=== PATIENT | male | born 1945 | race Caucasian/White ===

== ENCOUNTER 2019-02-16 13:54 | Emergency (ER) | payer MEDICARE, OTHER, SELFPAY ==
[2019-02-16 14:02] VITALS: BP 134/64; PULSE 78; RESP 18; TEMP 36.7; O2SAT 99
--- NOTE | 2019-02-16 14:22 | W.ED.GENAD ---
Discharge Plan Disposition Patient Disposition: HOME Condition: Good Discharge Details Chief Complaint: Cellulitis Clinical Impression: Tick bite, Risk of exposure to Lyme disease Primary Care Provider: Jerrica,Local ED Provider: mAirah Mcrae Home Meds and New Rx's Prescriptions: New doxycycline hyclate 100 mg capsule 200 mg PO ONCE Qty: 2 RF: 0 Discharge Instructions Instructions: Tick Bite (ED) Additional Instructions: Embedded piece of tape was removed today. The redness there today is consistent with slight irritation, does not appear frankly infected. Monitor area for signs of infection including spreading of the redness, warmth, drainage, increased pain, fever/chills. If these arise please seek care urgently once again. Doxycycline as prescribed for Lyme prophylaxis. Please follow-up with primary care as needed Discharge Data Discharge Date/Time-TO BE ENTERED AT DEPARTURE: 02/16/19 14:35 Medical Decision Making Patient 73-year-old male presenting today with chief complaint of embedded tick on the right lower side of his abdomen. He reports that he noticed that this morning, attempted to remove this himself but feels that the head is still embedded prompting him to seek care urgently. He has localized surrounding erythema, does not appear infected rather consistent with a typical embedded tick. Unclear as to how long the tick has been on. He does not believe that is been on for over 36 hours is unclear. Tick was a small, consistent with the deer tick. We did discuss Lyme prophylaxis. At this time, patient is requesting Lyme prophylaxis, will prescribe doxycycline. The remaining embedded portion of tick was able to be removed by myself, area was cleansed. We discussed new/worsening symptoms when to seek care urgently once again. All his questions and concerns were addressed and he is in agreement with this plan. HPI General Mode of arrival: ambulatory. Date/Time Provider Initiated Documentation: 02/16/19 13:57. Limitations to Documentation: no limitations. Information obtained by: patient and RN notes reviewed. History of Present Illness 73 year old M presents to the emergency department with the chief complaint of tick embedded right lower abdomen, Patient started experiencing this hour(s) and it has been constant. Patient notes no other symptoms.. Patient did receive the following treatments prior to arrival, none Related Data Home Medications Medication Instructions Recorded Confirmed doxycycline hyclate 200 mg PO ONCE #2 cap 02/16/19 Previous Rx's Medication Instructions Recorded doxycycline hyclate 200 mg PO ONCE #2 cap 02/16/19 Allergies Allergy/AdvReac Type Severity Reaction Status Date / Time No Known Allergies Allergy Unverified 02/16/19 14:05 General Stated Complaint: Cellulitis DALE: 5 Review of Systems Constitutional Reports as per HPI, Denies chills and Denies fever(s) Musculoskeletal Reports as per HPI Integumentary/Breasts Reports as per HPI Neurologic Reports as per HPI, Denies sensory deficit and Denies paresthesias PFS Medical History Spermatocele (Acute) Surgical History H/O hernia repair (Chronic) Social History Smoking/Tobacco Use Status: Never Alcohol Intake: current Alcohol Intake frequency: holidays/special occasions only Drug use: Never Exam Const General: cooperative, healthy appearing, comfortable, no acute distress and well developed Nutritional Appearance: average body habitus and well nourished Orientation: alert and awake Resp Effort & Inspection: normal respiratory effort, able to speak in complete sentences and no respiratory distress Cardio Rate: regular rate Rhythm: regular rhythm Skin General skin exam: erythema (localized around tick) and no fluctuance Neuro General: alert and awake Cognition: normal cognition Speech: speech normal Gait: normal gait Sensory Exam: no sensory deficits noted Psych Appearance: grossly normal and well kempt Mental Status: mental status grossly normal Speech and Movement: speech and movement normal Course Vital Signs Temperature 36.7 C 02/16/19 14:02 Pulse 78 02/16/19 14:02 Respiratory Rate 18 02/16/19 14:02 Blood Pressure 134/64 02/16/19 14:02 Pulse Oximetry 99 02/16/19 14:02 Temperature 36.7 C 02/16/19 14:02 Temperature Source Skin 02/16/19 14:02 Pulse 78 02/16/19 14:02 Respiratory Rate 18 02/16/19 14:02 Respiratory Effort Non-Labored 02/16/19 14:06 Blood Pressure 134/64 02/16/19 14:02 Blood Pressure Position Sitting 02/16/19 14:02 Pulse Oximetry 99 02/16/19 14:02 Oxygen Delivery Method Room Air 02/16/19 14:02 Oxygen Flow Rate 0 02/16/19 14:02 Pain Level 0 02/16/19 14:02
--- NOTE | 2019-02-16 14:26 | ED.GENADUL_ITS ---
Discharge Plan Disposition Patient Disposition: HOME Condition: Good Discharge Details Chief Complaint: Cellulitis Clinical Impression: Tick bite, Risk of exposure to Lyme disease Primary Care Provider: Jerrica,Local ED Provider: Amirah Mcrae Home Meds and New Rx's Prescriptions: New doxycycline hyclate 100 mg capsule 200 mg PO ONCE Qty: 2 RF: 0 Discharge Instructions Instructions: Tick Bite (ED) Additional Instructions: Embedded piece of tape was removed today. The redness there today is consistent with slight irritation, does not appear frankly infected. Monitor area for signs of infection including spreading of the redness, warmth, drainage, increased pain, fever/chills. If these arise please seek care urgently once again. Doxycycline as prescribed for Lyme prophylaxis. Please follow-up with primary care as needed Discharge Data Discharge Date/Time-TO BE ENTERED AT DEPARTURE: 02/16/19 14:35 Medical Decision Making Patient 73-year-old male presenting today with chief complaint of embedded tick on the right lower side of his abdomen. He reports that he noticed that this morning, attempted to remove this himself but feels that the head is still embedded prompting him to seek care urgently. He has localized surrounding erythema, does not appear infected rather consistent with a typical embedded tick. Unclear as to how long the tick has been on. He does not believe that is been on for over 36 hours is unclear. Tick was a small, consistent with the deer tick. We did discuss Lyme prophylaxis. At this time, patient is requesting Lyme prophylaxis, will prescribe doxycycline. The remaining embedded portion of tick was able to be removed by myself, area was cleansed. We discuss ed new/worsening symptoms when to seek care urgently once again. All his questions and concerns were addressed and he is in agreement with this plan. HPI General Mode of arrival: ambulatory . Date/Time Provider Initiated Documentation: 02/16/19 13:57 . Limitations to Documentation: no limitations . Information obtained by: patient and RN notes reviewed . History of Present Illness 73 year old M presents to the emergency department with the chief complaint of tick embedded right lower abdomen, Patient started experiencing this hour(s) and it has been constant. Patient notes no other symptoms.. Patient did receive the following treatments prior to arrival, none Related Data Home Medications Medication Instructions Recorded Confirmed doxycycline hyclate 200 mg PO ONCE #2 cap 02/16/19 Previous Rx's Medication Instructions Recorded doxycycline hyclate 200 mg PO ONCE #2 cap 02/16/19 Allergies Allergy/AdvReac Type Severity Reaction Status Date / Time No Known Allergies Allergy Unverified 02/16/19 14:05 General Stated Complaint: Cellulitis DALE: 5 Review of Systems Constitutional Reports as per HPI, Denies chills and Denies fever(s) Musculoskeletal Reports as per HPI Integumentary/Breasts Reports as per HPI Neurologic Reports as per HPI, Denies sensory deficit and Denies paresthesias [facility] Medical History Spermatocele (Acute) Surgical History H/O hernia repair (Chronic) Social History Smoking/Tobacco Use Status: Never Alcohol Intake: current Alcohol Intake frequency: holidays/special occasions only Drug use: Never Exam Const General: cooperative, healthy appearing, comfortable, no acute distress and well developed Nutritional Appearance: average body habitus and well nourished Orientation: alert and awake Resp Effort & Inspection: normal respiratory effort, able to speak in complete sentences and no respiratory distress Cardio Rate: regular rate Rhythm: regular rhythm Skin General skin exam: erythema (localized around tick) and no fluctuance Neuro General: alert and awake Cognition: normal cognition Speech: speech normal Gait: normal gait Sensory Exam: no sensory deficits noted Psych Appearance: grossly normal and well kempt Mental Status: mental status grossly normal Speech and Movement: speech and movement normal Course Vital Signs Temperature 36.7 C 02/16/19 14:02 Pulse 78 02/16/19 14:02 Respiratory Rate 18 02/16/19 14:02 Blood Pressure 134/64 02/16/19 14:02 Pulse Oximetry 99 02/16/19 14:02 Temperature 36.7 C 02/16/19 14:02 Temperature Source Skin 02/16/19 14:02 Pulse 78 02/16/19 14:02 Respiratory Rate 18 02/16/19 14:02 Respiratory Effort Non-Labored 02/16/19 14:06 Blood Pressure 134/64 02/16/19 14:02 Blood Pressure Position Sitting 02/16/19 14:02 Pulse Oximetry 99 02/16/19 14:02 Oxygen Delivery Method Room Air 02/16/19 14:02 Oxygen Flow Rate 0 02/16/19 14:02 Pain Level 0 02/16/19 14:02
== END 2019-02-16 14:35 | disposition home or self-care (01) ==
LOC: ER 14:31
PROVIDERS: Emergency Provider Physician Assistant
DX: S30.861A Insect bite (nonvenomous) of abdominal wall, initial encounter (principal); W57.XXXA Bitten or stung by nonvenomous insect and other nonvenomous arthropods, initial encounter
CPT/HCPCS: 99283

== ENCOUNTER 2019-04-30 11:20 | Emergency (ER) | payer MEDICARE, OTHER, SELFPAY ==
[2019-04-30 11:27] VITALS: BP 115/64; PULSE 64; RESP 16; TEMP 36.5; O2SAT 99
--- NOTE | 2019-04-30 12:02 | ED.GENADUL_ITS ---
Discharge Plan Disposition Patient Disposition: HOME Condition: Good Discharge Details Chief Complaint: RashLesion Clinical Impression: Ecchymosis Primary Care Provider: Jerrica,Local ED Provider: Amirah Mcrae Home Meds and New Rx's Prescriptions: New doxycycline hyclate 100 mg tablet 100 mg PO BID Qty: 42 RF: 0 Discharge Instructions Instructions: Contusion in Adults (ED) Additional Instructions: At this point, your rash is not consistent with erythema migrans rash of Lyme disease. This looks more consistent with bruising. Please continue to monitor the area. If you develop erythema in the pattern shown you while here, please begin the doxycycline. Begin the doxycycline as well if you develop fever/chills, joint pain. Please follow-up with your primary care in 2 weeks if symptoms have not improved. If you develop new or worsening symptoms please seek care urgently once again. Discharge Data Discharge Date/Time-TO BE ENTERED AT DEPARTURE: 04/30/19 12:10 Medical Decision Making Patient is a 74 year old male, accompanied by his , with c/c of lesion to his right forearm. He believes he was bit/stung by an insect 4 days ago. Reprots this was after working under a deck. Noted a 1cm circular area around the small puncture wound. Was seen by physician who was concerned for possible Lyme and advised he be evaluated. Denies feers/chills. No pain. UTD on tetanus. No arthralgia, myalgias. Rash is not consistent with erythema migrans. Appears more eccymotic. Too small for erythema migrans. Dr. Frankel also looked at area and agrees with this assessment. Advises that this is likely from trauma from working on deck. Patient has had multiple tick related illnesses historically. will prescribe Doxycycline for a watch and wait approach. Encouraged f/u with PCP. Discussed new/worsening symptoms that should prompt urgent evaluation once again. All quesitons and concerns were addressed, they are in agreement with this plan. HPI General Date/Time Provider Initiated Documentation: 04/30/19 11:31 . HPI Narrative: Patient is a 74-year-old male, not anticoagulated, with chief complaint of rash to the right anterior forearm. Reports that he first noticed this 4 to 5 days ago. Patient has a 1 cm well-circumscribed area of ecchymosis surrounding a small scab. He reports that he got this after working under his deck. Is concerned that this may be a bug bite. States that a friend who is a physician saw this and is concerned that it may be erythema migrans and advised evaluation for possible Lyme treatment. No known tick bite. Patient reports that he has had bites historically. Last tetanus was 2 years ago. Related Data Home Medications Medication Instructions Recorded Confirmed doxycycline hyclate 100 mg PO BID #42 tab 04/30/19 Previous Rx's Medication Instructions Recorded doxycycline hyclate 100 mg PO BID #42 tab 04/30/19 Allergies Allergy/AdvReac Type Severity Reaction Status Date / Time No Known Allergies Allergy Unverified 04/30/19 11:29 General Stated Complaint: RashLesion DALE: 4 Review of Systems Constitutional Reports as per HPI, Denies chills and Denies fever(s) Musculoskeletal Reports as per HPI, Denies myalgias and Denies arthralgias Integumentary/Breasts Reports as per HPI Neurologic Reports as per HPI, Denies sensory deficit and Denies paresthesias PFS Social History Smoking/Tobacco Use Status: Never Alcohol Intake: current Alcohol Intake frequency: holidays/special occasions only Drug use: Never Exam Const General: cooperative, healthy appearing, comfortable, no acute distress and well developed Nutritional Appearance: average body habitus and well nourished Orientation: alert and awake Resp Effort & Inspection: normal respiratory effort, able to speak in complete sentences and no respiratory distress Cardio Rate: regular rate Rhythm: regular rhythm Skin Rashes: rashes noted (1cm circular ecchymotic area right forearm, central yellowed area ) Neuro General: alert and awake Cognition: normal cognition Speech: speech normal Gait: normal gait Sensory Exam: no sensory deficits noted Extrem Right upper extremity: normal capillary refill and no joint enlargement; abnormal to inspection (skin changes as above, otherwise normal exam) and no edema Psych Appearance: grossly normal and well kempt Mental Status: mental status grossly normal Speech and Movement: speech and movement normal Course Vital Signs Temperature 36.5 C 04/30/19 11:27 Pulse 64 04/30/19 11:27 Respiratory Rate 16 04/30/19 11:27 Blood Pressure 115/64 04/30/19 11:27 Pulse Oximetry 99 04/30/19 11:27 Temperature 36.5 C 04/30/19 11:27 Temperature Source Skin 04/30/19 11:27 Pulse 64 04/30/19 11:27 Respiratory Rate 16 04/30/19 11:27 Respiratory Effort Non-Labored 04/30/19 11:27 Blood Pressure 115/64 04/30/19 11:27 Blood Pressure Position Sitting 04/30/19 11:27 Pulse Oximetry 99 04/30/19 11:27 Oxygen Delivery Method Room Air 04/30/19 11:27 Oxygen Flow Rate 0 04/30/19 11:27 Pain Level 0 04/30/19 11:27
== END 2019-04-30 12:10 | disposition home or self-care (01) ==
PROVIDERS: Emergency Provider Physician Assistant
DX: S50.11XA Contusion of right forearm, initial encounter (principal); X58.XXXA Exposure to other specified factors, initial encounter
CPT/HCPCS: 99283

== ENCOUNTER 2023-03-26 17:51 | Emergency (ER) | payer MEDICARE, OTHER, SELFPAY ==
[2023-03-26] VITALS (109 sets, daily range): BP systolic 86–143; BP diastolic 45–74; PULSE 93–119; RESP 10–24; TEMP 37.6–39.1; O2SAT 88–99
--- NOTE | 2023-03-26 17:45 | RT.EKG_ITS ---
APPROVED REPORT Exam: Resting ECG Reason for Exam: chest pain Patient Location: E HR:99 bpm ECG Measurements Heart Rate 99 AXIS MO 204 P 58 QRSd 92 QRS 33 QT 332 T 50 QTc 427 Conclusion Sinus tachycardia...rate> 99 Atrial premature complexes...SV complexes w/ short R-R intvls
--- NOTE | 2023-03-26 18:15 | DI.CT_ITS ---
Exam(s) CT CHEST PE ABD PELVIS W EXAM: CT CHEST PE ABD PELVIS W CLINICAL HISTORY: fever, epigastric pain. TECHNIQUE: Imaging Protocol: Axial CT angiography was performed with multi-slice acquisition and mu lti-planar and/or 3D reconstructions. CONTRAST MATERIAL: Intravenous: Omnipaque 350contrast volume:100 mL COMPARISON: No exams were available for comparison FINDINGS: CHEST: Tracheobronchial tree: Patent where visualized. Pulmonary parenchyma: Mild dependent atelectasis. No focal consolidating infiltrates. No architectu ral distortion. Pulmonary Arteries: No evidence of filling defect to suggest pulmonary emboli. Mediastinum and Corrina: No dominant adenopathy or fluid collection. The esophagus is unremarkable. Visualized thyroid gland: Unremarkable. Pleura: No effusion or pneumothorax. There are few calcified pleural plaques which can be seen with p rior asbestos exposure. Heart: The heart is not dilated. No coronary artery calcifications are seen. No pericardial effusion. Aorta: Thoracic aorta non-dilated. No evidence of dissection. Bones: Within normal limits for the patient's age. Soft tissues: Unremarkable. ABDOMEN: Liver: Normal density. No measurable mass. Portal, Superior Mesenteric, and Splenic Veins: Prominence of the venous structures in the abdomen an d pelvis which may reflect elevated portal venous pressures. Gallbladder and Biliary Tract: The gallbladder is distended. No stones are identified. There is mil d intrahepatic biliary ductal dilatation. There is mild pericholecystic fluid. Pancreas: Normal density, no abnormal calcifications or inflammatory process. Spleen: Normal. Adrenals: No masses seen. Kidneys: Normal size, contour and axis. Right nephrolithiasis. No hydronephrosis. Simple bilateral renal cysts. No follow-up is recommended. Abdominal Aorta: Abdominal portion non-dilated. Atherosclerosis. Bowel: No obstruction or bowel wall thickening. Postsurgical changes in the mid small bowel in the pe lvis. Peritoneal Cavity: Trace ascites. No free air. Lymph Nodes: Within normal limits. Bones: Within normal limits for the patient's age. Soft Tissues: Small fat containing umbilical hernia. PELVIS: Bladder: The urinary bladder is incompletely distended. There is diffuse thickening of the wall of t he urinary bladder. Reproductive Organs: Unremarkable as visualized. Lymph Nodes: Within normal limits. Bones: Within normal limits. Scoliosis in the spine. IMPRESSION: 1. No evidence pulmonary embolism, thoracic aortic dissection or aneurysm. 2. No acute pulmonary process. 3. Moderate amount of retained stool in the colon. No acute bowel pathology. 4. Distended gallbladder with mild pericholecystic fluid and intra and extrahepatic biliary ductal pr ominence. Ultrasound may be considered to exclude acute cholecystitis. No gallstones are seen. 5. Diffuse gallbladder wall thickening. This may be due to incomplete distension. Acute cystitis or chronic bladder outlet obstruction could also produces appearance. RADIATION DOSE DELIVERED: 1,117.64mGy.cm Total DLP DATA REPOSITORY: All CT scans at this facility are submitted to the National Radiology Data Registry (NRDR) Dose Index Registry (DIR) with the [employer] (A[employer]). RADIATION OPTIMIZATION: All CT scans at this facility use at least one of these dose optimization te chniques: automated exposure control; mA and/or kV adjustment per patient size (includes targeted exa ms where dose is matched to clinical indication); or iterative reconstruction.
[2023-03-26] MEDS: Normal Saline 1,000 ML 1000 ML IV ×2 (18:19→22:00)
--- NOTE | 2023-03-26 18:20 | ED.GENADUL_ITS ---
Discharge Plan Disposition Condition: Stable Discharge Details Chief Complaint: Epigastric Pain/Over45 Clinical Impression: Fever, Abdominal pain Primary Care Provider: Jerrica,Local ED Provider: Rinku Hatfield Home Meds and New Rx's Prescriptions: No Action doxycycline hyclate 100 mg tablet 100 mg PO BID Qty: 42 0RF Medical Decision Making 78 yo male who denies chronic medical problems, states last August had hernia surgery that resulted in removal of part of his colon, comes in with cc of epigastric discomfort and n/v since this afternoon. He is noted to be febrile on arrival which he was unaware of. He denies cough, headache, rashes. He localizes the discomfort to the epigastric area of his abdomen. He is caox4 speaking clearly, is having rigors during exam. He has clear lungs, moving all extremities well, no murmurs, no jvd. His abdomen is soft with minimal tenderness in the luq and ruq without guarding or rebound. Unclear etiology for his symptoms given the fevers and epigastric pain concern for possible cholecystitis vs hepatitis, will obtain fluvid, cbc, cmp, lactate, procalcitonin and ct chest/abd/pelvis to evaluate for possible infiltrates vs cholecystitis vs abscess. Will treat with IVF bolus, tylenol and zofran. labs show elevated lft's otherwise benign labs, ct pending, will be signed out to oncoming provider Differential Diagnosis Differential Diagnosis: cholecystitis, pneumonia, sepsis Lab Data Lab results reviewed: Yes I reviewed the patient's lab results. ECG Data Attestation: I personally reviewed and interpreted this ECG (s) as follows: Prior ECG tracings: not available for review Interpretation: sinus tachycardia, rate of 99, pr 204, no stemi HPI General Mode of arrival: ambulatory . Date/Time Provider Initiated Documentation: 03/26/23 17:51 . Limitations to Documentation: no limitations . Information obtained by: patient . History of Present Illness 78 year old M presents to the emergency department with the chief complaint of epigastric discomfrot, described as moderate, and it has been constant. No relieving factors improve symptom(s), No exacerbating factors reported . Patient notes nausea/vomiting; denies chest pain and shortness of breath. Patient did receive the following treatments prior to arrival, none Related Data Home Medications Medication Instructions Recorded Confirmed doxycycline hyclate 100 mg tablet 100 mg PO BID #42 tabs 04/30/19 Previous Rx's Medication Instructions Recorded doxycycline hyclate 100 mg tablet 100 mg PO BID #42 tabs 04/30/19 Allergies Allergy/AdvReac Type Severity Reaction Status Date / Time No Known Allergies Allergy Unverified 03/26/23 18:06 General Stated Complaint: Epigastric Pain/Over45 DALE: 2 Review of Systems All systems reviewed & are unremarkable except as noted in HPI and below Constitutional Constitutional: Denies chills, Denies fever(s) and Denies weakness Cardiovascular Cardiovascular: Denies chest pain and Denies dyspnea Respiratory Respiratory: Denies cough and Denies dyspnea Gastrointestinal Gastrointestinal: Reports abdominal pain, Reports nausea and Reports vomiting Musculoskeletal Musculoskeletal: Denies joint swelling Neurologic Neurologic: Denies weakness PFSH All Active Problems (Updated 03/26/23 @ 19:43 by Rinku Hatfield MD) Fever (Acute) Abdominal pain (Acute) Medical History (Updated 03/26/23 @ 19:43 by Rinku Hatfield MD) Spermatocele Surgical History H/O hernia repair Social History Smoking/Tobacco Use Status: Never Smoking risk assessment performed?: Yes Alcohol Intake: current Alcohol Intake frequency: holidays/special occasions only Drug use: Never Exam Const General: no acute distress Orientation: alert [facility] Head: normal to inspection Ears: external ears normal General nose exam: external nose normal Mouth: moist mucous membranes Eyes General: appearance normal, both eyes and all related structures Neck Neck: normal visual inspection Resp Effort & Inspection: normal respiratory effort and able to speak in complete sentences Cardio Rate: regular rate GI Palpation: soft and tender Skin General skin exam: no rashes or lesions noted Neuro General: patient alert and patient oriented x3 Extrem General: normal to inspection Psych Mental Status: mental status grossly normal Course Vital Signs Vital signs: Vital Signs Temperature 39.1 C H 03/26/23 18:00 Pulse 103 H 03/26/23 18:00 Respiratory Rate 16 03/26/23 18:00 Blood Pressure 143/69 H 03/26/23 18:00 Pulse Oximetry 96 03/26/23 18:00 Temperature 39.1 C H 03/26/23 18:00 Temperature Source Oral 03/26/23 18:00 Pulse 103 H 03/26/23 18:00 Respiratory Rate 16 03/26/23 18:00 Respiratory Effort Normal, Non-Labored 03/26/23 18:06 Blood Pressure 143/69 H 03/26/23 18:00 Blood Pressure Position Supine 03/26/23 18:00 Pulse Oximetry 96 03/26/23 18:00 Oxygen Delivery Method Room Air 03/26/23 18:00 Oxygen Flow Rate 0 03/26/23 18:00 Lab/Test Results Lab/Test Results: 03/26/23 18:08 Blood Blood Culture - Pending 03/26/23 18:08 Blood Blood Culture - Pending Sign Out Sign Out Data: Sign Out Comment: Fever and epigastric discomfort, lft's elevated, pending CT Last updated by Rinku Hatfield MD at 03/26/23 19:31
[2023-03-26 18:25] LABS: Lactate 1.7 mmol/L (0.6-1.4)
[2023-03-26 18:27] LABS: Abs Immature Grans 0.01 10^3/uL (0.0-0.06); Absolute Basophil Count 0.02 10^3/uL (0.0-0.2); Absolute Eosinophil Count 0.01 10^3/uL (0.0-0.7); Absolute Lymphocyte Count 0.38 10^3/uL (1.2-3.4); Absolute Monocyte Count 0.04 10^3/uL (0.1-0.8); Absolute Neutrophil Count 7.41 10^3/uL (1.2-6.7); Basophils % 0.3; Eosinophils % 0.1; HGB 12.4 g/dL (13.5-17.5); Immature Grans % 0.1; Lymphocytes % 4.8; MCH 31.6 pg (27.0-33.0); MCHC 32.6 % (32.0-36.0); MCV 97 fL (80-95); MPV 9.7 fL (8.0-11.0); Monocytes % 0.5; Neutrophils % 94.2; Platelet Count 183 10^3/uL (130-400); RBC 3.93 10^6/uL (4.36-5.78); RDW 14.3 % (11.8-14.1); RDW-SD 50.6 fL; WBC 7.87 10^3/uL (4.4-10.8)
[2023-03-26 18:43] LABS: PTT Activated 21.7 sec (21.5-31.9)
[2023-03-26 18:50] LABS: ALT 237 U/L (16-63); AST 349 U/L (15-37); Albumin 3.8 g/dL (3.4-5.0); Alkaline Phosphatase 205 U/L (46-116); Anion Gap 7.5 mmol/L (3-11); BUN 22 mg/dL (7-18); Bilirubin, Total 2.6 mg/dL (0.2-1.0); CO2 30.5 mmol/L (21.0-32.0); Calcium 8.9 mg/dL (8.5-10.1); Chloride 104 mmol/L (98-107); Estimated GFR 77.52 (mL/min/1.73m2); Glucose 111 mg/dL (74-106); Lipase 51 U/L (16-77); Magnesium 1.9 mg/dL (1.8-2.4); Potassium 3.8 mmol/L (3.5-5.1); Sodium 142 mmol/L (136-145); Total Protein 7.6 g/dL (6.4-8.2)
[2023-03-26] MEDS: Ondansetron 4 MG/2 ML VIAL IVP (18:51)
[2023-03-26] MEDS: ACETAMINOPHEN 1,000 MG/100 ML BTL 400 MG IVPB (18:51)
[2023-03-26 19:19] LABS: COVID-19 PCR Negative (Negative); Influenza A PCR Negative (Negative); Influenza B PCR Negative (Negative); RSV PCR Negative (Negative)
[2023-03-26 19:20] LABS: Procalcitonin 0.1 ng/mL
[2023-03-26 19:24] LABS: Source Nasopharynx
[2023-03-26 19:27] LABS: Bilirubin Small (Negative); Blood Negative (Negative); Clarity Clear (Clear); Glucose Negative (Negative); Ketones 15 mg/dL (Negative); Leukocyte Esterase Negative (Negative); Nitrite Negative (Negative); pH 7.5 (5-8)
--- NOTE | 2023-03-26 20:40 | DI.VRAD_ITS ---
PROCEDURE INFORMATION: Exam: CTA Chest With Contrast Exam date and time: 03/26/2023 7:50 PM Age: 78 years old Clinical indication: Abdominal pain; Other: Unspecified; Patient HX: Fever, epigastric pain TECHNIQUE: Imaging protocol: Computed tomographic angiography of the chest with contrast. Exam focused on the arteries. 3D rendering (Not supervised by radiologist): MIP and/or 3D reconstructed images were created by the technologist. COMPARISON: No relevant prior studies available. FINDINGS: Pulmonary arteries: Enlarged pulmonary trunk and main pulmonary arteries suggesting pulmonary hypertension. No pulmonary embolism identified. Aorta: No thoracic aortic aneurysm or dissection. Thyroid: Thyroid gland partially excluded from view but grossly unremarkable through its visualized portion. Lungs: Lung dawn somewhat obscured by artifact from breathing motion. Mild dependent atelectasis. No pulmonary consolidation. Pleural spaces: Few scattered small calcified pleural plaques. Prior asbestos exposure? No pleural effusion or pneumothorax. Heart: Normal sized heart. Lymph nodes: No pathologically enlarged mediastinal or hilar lymph nodes. Bones/joints: No acute fracture seen among the bones of the chest. Soft tissues: No gross soft tissue mass or fluid collection seen in the chest wall. No gross soft tissue mass or fluid collection seen in the chest wall. IMPRESSION: Enlarged pulmonary trunk and main pulmonary arteries suggesting pulmonary hypertension. No pulmonary embolism identified. PROCEDURE INFORMATION: Exam: CT Abdomen And Pelvis With Contrast Exam date and time: 03/26/2023 7:50 PM Age: 78 years old Clinical indication: Abdominal pain; Other: Unspecified; Patient HX: Fever, epigastric pain TECHNIQUE: Imaging protocol: Computed tomography of the abdomen and pelvis with contrast. COMPARISON: No relevant prior studies available. FINDINGS: Liver: Normal appearing liver. Gallbladder and bile ducts: Prominent gallbladder distension measuring 5.2 cm x 5.4 cm by approximately 10.0 cm. Gallbladder wall poorly demonstrated but not grossly thickened. Trace pericholecystic fluid. No frankly calcified gallstones. Mild intrahepatic and extrahepatic biliary prominence. No frankly calcified distal common duct stones. Pancreas: Pancreas partially obscured by close apposition of adjacent structures. Mild prominence of the pancreatic duct measuring 5 mm through the mid body. Spleen: Normal-appearing spleen. No splenomegaly. Adrenal glands: Normal appearing adrenal glands. Kidneys and ureters: Small bilateral renal cysts. Otherwise normal-appearing kidneys. No hydronephrosis. Ureters partially obscured. No obstructing ureteral stones. Stomach and bowel: No oral contrast. Stomach partially decompressed. No small bowel dilatation to suggest obstruction. Enteroenteric anastomosis in the anterior pelvis suggesting a prior small bowel resection. Fecalized contents through the distal small bowel suggesting delayed transit through the ileum. Moderate retained fecal material in the cecum, ascending colon, and proximal transverse colon. Downstream colon well evacuated. No evidence of diverticulitis or colitis. Appendix: Normal appendix, best demonstrated by the coronal series. Intraperitoneal space: Probably at least trace intraperitoneal fluid. No free air. Vasculature: Normal caliber abdominal aorta. Enlarged portal vein, splenic vein, and superior mesenteric vein. Diffuse engorgement of the mesenteric venous structures. Engorged extraperitoneal venous structures throughout the deep pelvis. Extensive small subcutaneous varices in the anterior abdominal wall. Elevated portal venous pressure? Clinical correlation recommended. Lymph nodes: No pathologically enlarged mesenteric, retroperitoneal, or pelvic sidewall lymph nodes. Urinary bladder: Urinary bladder partially decompressed but circumferentially thick-walled. Reproductive: Normal-appearing prostate gland and seminal vesicles. Bones/joints: No acute fracture seen among the bones of the abdomen or pelvis. Soft tissues: Mild S-shaped curvature through the thoracolumbar region. Spinal degenerative change with discogenic degeneration, anterior osteophytes, posterior osteophytic ridging, vacuum disc deformities, and facet arthrosis at several levels. Small fat containing ventral hernia at the umbilicus. IMPRESSION: 1. No acute bowel pathology demonstrated. Moderate retained fecal material in the cecum, ascending colon, and proximal transverse colon but good evacuation of the downstream colon. 2. Prominently distended gallbladder. Gallbladder wall poorly demonstrated but not grossly thickened. Mild pericholecystic fluid. Intrahepatic and extrahepatic biliary prominence with prominence of the pancreatic duct. Although nonspecific, clinical correlation is recommended to exclude acute cholecystitis. 3. Enlarged portal, splenic, and superior mesenteric veins with diffuse engorgement of the mesenteric veins and engorgement of extraperitoneal veins throughout the deep pelvis. Although nonspecific, clinical correlation is recommended to exclude elevated portal venous pressure. 4. Circumferential bladder wall thickening, nonspecific. Artifact of incomplete distention, acute cystitis, or chronic outflow obstruction could produce this appearance. Dictated and Authenticated by: Remi Zuleta MD. Ordering:CARMEN Dobbs MD
--- NOTE | 2023-03-26 21:30 | RT.EKG_ITS ---
APPROVED REPORT Exam: Resting ECG Reason for Exam: tachycardia Patient Location: E HR:104 bpm ECG Measurements Heart Rate 104 AXIS MO 234 P 75 QRSd 87 QRS 47 QT 321 T 14 QTc 412 Conclusion Sinus rhythm...normal P axis, V-rate 60- 99 Atrial premature complexes...SV complexes w/ short R-R intvls Prolonged MO interval...MO >215, V-rate 91-120 sinus rhythm, PAC, normal axis, non ischemic
[2023-03-26] MEDS: PIPERACILLIN/TAZO 4.5 GM in Normal Saline 100 ML IVPB (22:01)
--- NOTE | 2023-03-26 22:13 | NUR.NOTE ---
Nursing Note: Report to Margarette CAMPBELL
--- NOTE | 2023-03-26 22:26 | ED.PROG_ITS ---
Date of service: 03/26/23 Time of Service: 22:26 Medical Decision Making Obstructive biliary pattern concerning for choledocholithiasis, in the setting of fever elevated lactate rigors on arrival consider early cholangitis, empiric Zosyn has been ordered. Fluid bolus has been ordered given relative hypotension and tachycardia I have touch base with general surgery here at [facility] as well as GI team at [facility] as patient will likely benefit from ERCP. Awaiting hear back from [facility] regarding bed availability. Patient endorses feeling better resolved pain and nausea. Patient does have mild scleral icterus March 27, 00: 00 given concern for cholangitis, history physical and change in vital signs, [facility] hospitalist and GI team has accepted patient, he will go to ED for initial evaluation given relative hypotension. Accepting physician Dr. Barba. Patient amenable to transfer. We will continue with fluids and antibiotics. Sign Out Sign Out Data: Sign Out Comment: Fever and epigastric discomfort, lft's elevated, pending CT Last updated by Rinku Hatfield MD at 03/26/23 19:31 Discharge Plan Disposition Patient Disposition: Transfer-Acute Inpatient Care Specific Acute Inpt Facility: [facility] Condition: Stable Discharge Details Chief Complaint: Epigastric Pain/Over45 Clinical Impression: Fever, Abdominal pain, Acute cholangitis Primary Care Provider: Jerrica,Local ED Provider: Jf Bruce Home Meds and New Rx's Prescriptions: No Action doxycycline hyclate 100 mg tablet 100 mg PO BID Qty: 42 0RF
[2023-03-27] VITALS (15 sets, daily range): BP systolic 87–93; BP diastolic 39–45; PULSE 93–101; RESP 15–20; TEMP 37; O2SAT 94–97
[2023-03-28 11:06] LABS: Lyme Ab w Rflx to Lyme Confirm Negative (Negative)
--- NOTE | 2023-03-29 07:46 | NUR.NOTE ---
Addendum entered by Heydi Hebert 03/29/23 09:13: Confirmed receipt by Gisel Sahu 3rd floor, Original Note: Nursing Note: Accessed chart to look up whether or not on antibiotic. Patient was transferred to [facility] [place] 3rd floor. . Dr. Alex sánchez.
[2023-03-29 19:31] LABS: Anaplasma phagocytophilum Negative (Negative); B. miyamotoi PCR Negative (Negative); Babesia divergens/MO-1 Negative (Negative); Babesia duncani Negative (Negative); Babesia microti Negative (Negative); Ehrlichia chaffeensis Negative (Negative); Ehrlichia ewingii/canis Negative (Negative); Ehrlichia muris eauclairensis Negative (Negative)
== END 2023-03-27 01:22 | disposition short-term general hospital (02) ==
PROVIDERS: Emergency Medicine; Emergency Provider Emergency Medicine
DX: K83.09 Other cholangitis (principal); R50.9 Fever, unspecified; R10.13 Epigastric pain; I95.0 Idiopathic hypotension; R00.0 Tachycardia, unspecified; R79.89 Other specified abnormal findings of blood chemistry; R11.2 Nausea with vomiting, unspecified
CPT/HCPCS: 71275; 74177; 80053; 83690; 84145; 87040; 87077; 87637; 87798; 93005; 96361; 96365; 96375; 99285; 81003; 83605; 83735; 84443; 85025; 85610; 85730; 86618; 87186; 93010; J0131; J2405; J2543